=== PATIENT | female | born 1975 | race American Indian/Alaskan Native ===

== ENCOUNTER 2017-05-02 07:20 | Outpatient (CLI) | payer BC ==
--- NOTE | 2017-05-02 08:43 | Ultrasound Report ---
RIGHT UPPER QUADRANT ULTRASOUND: HISTORY: Hepatitis B. Technique: Transabdominal ultrasound imaging with Doppler interrogation. FINDINGS: The gallbladder is sonolucent with no evidence of stones, polyps or wall thickening. The common duct is normal in caliber. Images of the liver parenchyma, pancreas, right kidney and aorta are within normal limits. No perihepatic ascites. No liver mass or sclerotic changes are identified. IMPRESSION: Unremarkable right upper quadrant ultrasound. No change since 09/15/16.
== END 2017-05-02 07:21 | disposition home or self-care (01) ==
LOC: US 07:20
PROVIDERS: ATTEND Internal Medicine
DX: B19.10 Unspecified viral hepatitis B without hepatic coma (principal)
CPT/HCPCS: 76705

== ENCOUNTER 2018-04-02 08:19 | Outpatient (CLI) | payer BC ==
--- NOTE | 2018-04-02 15:15 | Ultrasound Report ---
Limited abdominal ultrasound: Hepatitis C. The liver appears echogenically normal. No evidence of mass present. The gallbladder is unremarkable and the CBD diameter is 5.4 mm. Right renal length is 9.5 cm and is echogenically unremarkable. The proximal abdominal aorta measures 1.7 cm in diameter. Impression: No abnormal findings.
== END 2018-04-02 08:20 | disposition home or self-care (01) ==
LOC: US 08:19
PROVIDERS: ATTEND Internal Medicine
DX: B19.10 Unspecified viral hepatitis B without hepatic coma (principal)
CPT/HCPCS: 76705